=== PATIENT | female | born 1965 | race Caucasian/White ===

== ENCOUNTER → 2016-03-11 | Outpatient (CLI) | payer BC, OTHER ==
[~2016-03-11] MED LIST: ATOR-22 PO; AZITTAB PO; GLC/500 PO; LPRUNK; LSNUNK; METO25TA56 PO; SPIR25TA PO
[2016-03-11 17:36] LABS: ALT/SGPT 27 U/L (12-78); AST/SGOT 14 U/L (15-37); BLOOD UREA NITROGEN 19 mg/dl (7-18); BUN/CREATININE RATIO 25.1 (10-20); CALCIUM 9.5 mg/dl (8.5-10.1); CARBON DIOXIDE 27 mmol/L (21-32); CHLORIDE 104 mmol/L (98-107); CREATININE 0.77 mg/dl (0.60-1.20); GLUCOSE 128 mg/dl (70-99); POTASSIUM 4.3 mmol/L (3.5-5.1); SODIUM 140 mmol/L (136-145)
[2016-03-11 17:48] LABS: RATIO 9.6 mcg/mg (0-30.0)
[2016-03-12 06:11] LABS: ESTIMATED AVERAGE GLUCOSE 220 mg/dl; HA1C FLAG Normal (Normal)
== END | disposition home or self-care (01) ==
LOC: C.LABPVFM 16:12
DX: E11.9 Type 2 diabetes mellitus without complications (principal); E78.5 Hyperlipidemia, unspecified; I10 Essential (primary) hypertension

== ENCOUNTER → 2016-06-03 | Outpatient (CLI) | payer OTHER ==
[~2016-06-03] MED LIST changes: -ATOR-22 PO; -AZITTAB PO; -GLC/500 PO; -METO25TA56 PO; -SPIR25TA PO
[2016-06-03 18:29] LABS: ALT/SGPT 23 U/L (12-78); AST/SGOT 14 U/L (15-37); BLOOD UREA NITROGEN 16 mg/dl (7-18); BUN/CREATININE RATIO 19.5 (10-20); CALCIUM 9.5 mg/dl (8.5-10.1); CARBON DIOXIDE 26 mmol/L (21-32); CHLORIDE 106 mmol/L (98-107); CHOLESTEROL 150 mg/dl (0-200); CREATININE 0.83 mg/dl (0.60-1.20); GLUCOSE 186 mg/dl (70-99); POTASSIUM 4.3 mmol/L (3.5-5.1); SODIUM 140 mmol/L (136-145); TRIGLYCERIDES 210 mg/dl (0-150); VERY LOW DENSITY LIPOPROT CALC 42 mg/dl
[2016-06-03 18:32] LABS: CHOLESTEROL/HDL RATIO 4.7; HDL CHOLESTEROL 32 mg/dl; LDL CHOLESTEROL CALCULATED 76 mg/dl
== END | disposition home or self-care (01) ==
LOC: C.LABPVFM 10:23
DX: I10 Essential (primary) hypertension (principal); E78.5 Hyperlipidemia, unspecified; E11.9 Type 2 diabetes mellitus without complications

== ENCOUNTER → 2016-09-18 | Outpatient (CLI) | payer OTHER ==
[2016-09-18 14:58] LABS: ALT/SGPT 25 U/L (12-78); AST/SGOT 10 U/L (15-37); BLOOD UREA NITROGEN 11 mg/dl (7-18); BUN/CREATININE RATIO 15.4 (10-20); CALCIUM 9.5 mg/dl (8.5-10.1); CARBON DIOXIDE 24 mmol/L (21-32); CHLORIDE 108 mmol/L (98-107); CREATININE 0.71 mg/dl (0.60-1.20); POTASSIUM 4.3 mmol/L (3.5-5.1); SODIUM 141 mmol/L (136-145)
[2016-09-18 15:01] LABS: ESTIMATED AVERAGE GLUCOSE 169 mg/dl; HA1C FLAG Normal (Normal)
[2016-09-18 15:04] LABS: CHOLESTEROL 138 mg/dl (0-200); CHOLESTEROL/HDL RATIO 4.2; GLUCOSE 143 mg/dl (70-99); HDL CHOLESTEROL 33 mg/dl; LDL CHOLESTEROL CALCULATED 64 mg/dl; MAGNESIUM 2.2 mg/dl (1.8-2.4); TRIGLYCERIDES 203 mg/dl (0-150); VERY LOW DENSITY LIPOPROT CALC 41 mg/dl
== END | disposition home or self-care (01) ==
LOC: C.LAB 13:40
DX: E11.9 Type 2 diabetes mellitus without complications (principal); I10 Essential (primary) hypertension; E78.5 Hyperlipidemia, unspecified

== ENCOUNTER 2017-03-10 10:24 | Emergency (ER) | payer OTHER ==
[~2017-03-10] VITALS: Ht 157.5 cm; Wt 68.5 kg
[2017-03-10 10:40] VITALS: TEMP 36.8; Ht 157.5 cm; Wt 68.5 kg
[2017-03-10] MEDS ORDERED: ATOR-22 PO (11:41)
[2017-03-10] MEDS ORDERED: GLC/500 PO (11:41)
[2017-03-10] MEDS ORDERED: SPIR25TA PO (11:41)
[2017-03-10] MEDS ORDERED: METO25TA56 PO (11:41)
[2017-03-10 12:03] LABS: BASO % 0.6 %; BASO ABS # 0.05 K/uL (0-0.2); EOS % 2.2 %; EOS ABS # 0.17 K/uL (0-0.5); HEMATOCRIT 42.3 % (37-47); HEMOGLOBIN 15.2 g/dL (12.0-16.0); IG# 0.03 K/uL (0.00-0.02); LYMPH % 24.6 %; LYMPH ABS # 1.91 K/uL (1.2-3.4); MEAN CELL VOLUME 87.4 fL (80-100); MEAN CORPUSCULAR HEMOGLOBIN 31.4 pg (25-34); MEAN CORPUSCULAR HGB CONC 35.9 g/dl (32-36); MONO % 3.7 %; MONO ABS # 0.29 K/uL (0.11-0.59); NEUT % 68.5 %; NEUT ABS # 5.31 K/uL (1.4-6.5); PLATELET COUNT 245 K/uL (130-400); RED CELL DISTRIBUTION WIDTH CV 11.9 % (11.5-14.5); RED CELL DISTRIBUTION WIDTH SD 38.1 fL (36.4-46.3); WHITE BLOOD COUNT 7.76 K/uL (4.8-10.8)
--- NOTE | 2017-03-10 12:03 | DIAGNOSTIC IMAGING REPORT ---
CHEST ONE VIEW PORTABLE CLINICAL HISTORY: Altered mental status. Weakness. Right arm numbness. COMPARISON STUDY: August 2007 FINDINGS: The cardiac and mediastinal contours are normal. There is no evidence of focal pulmonary consolidation. There is no evidence of failure. No pleural effusions are visualized.[ There is a right shoulder peritendinous calcification. IMPRESSION: No active disease in the chest. Electronically signed by: Christopher Villegas M.D. 03/10/2017 12:01 PM Dictated Date/Time: 03/10/2017 12:01 PM
--- NOTE | 2017-03-10 12:15 | DIAGNOSTIC IMAGING REPORT ---
CT OF THE HEAD WITHOUT CONTRAST CLINICAL HISTORY: Altered mental status. Right arm numbness and tingling. COMPARISON STUDY: No previous studies for comparison. CT DOSE: 638.56 mGycm TECHNIQUE: Helical axial images of the head were obtained without IV contrast. Automated exposure control was utilized for the study. A dose lowering technique was utilized adhering to the principles of ALARA. FINDINGS: No acute intracranial hemorrhage, midline shift or mass effect is present. Brain volume is normal. Ventricular system is normal. Basilar cisterns are patent. There are no extra-axial collections. Perez-white differentiation is maintained. There are no findings to suggest acute dural sinus thrombosis or acute territorial infarct. There are are air-fluid levels with secretions within the right sphenoid and left maxillary sinuses. Mastoid air cells are clear. There are no significant calvarial abnormalities. Orbits are unremarkable. IMPRESSION: 1. No acute intracranial findings. 2. Right sphenoid and left maxillary sinusitis, possibly acute. Electronically signed by: Brad Muñoz M.D. 03/10/2017 12:13 PM Dictated Date/Time: 03/10/2017 12:11 PM
[2017-03-10 12:28] LABS: ALBUMIN 4.2 gm/dl (3.4-5.0); ALT/SGPT 35 U/L (12-78); AST/SGOT 13 U/L (15-37); BLOOD UREA NITROGEN 16 mg/dl (7-18); CARBON DIOXIDE 25 mmol/L (21-32); CREATININE 0.81 mg/dl (0.60-1.20); GLUCOSE 418 mg/dl (70-99); LIPASE 668 U/L (73-393); POTASSIUM 4.2 mmol/L (3.5-5.1); SODIUM 132 mmol/L (136-145)
[2017-03-10 12:30] LABS: ALKALINE PHOSPHATASE 83 U/L (45-117); CKMB < 0.5 ng/ml (0.5-3.6); TOTAL PROTEIN 7.7 gm/dl (6.4-8.2)
[2017-03-10] MEDS ORDERED: NovoLIN-R INSULIN PER UNIT CHARGE SC STA (13:41)
[2017-03-10] MEDS ORDERED: AZITHROMYCIN 250 MG TAB PO STA (13:41)
--- NOTE | 2017-03-10 13:49 | EMERGENCY ROOM VISIT NOTE ---
History Report prepared by Naye: Baldomero Arevalo Under the Supervision of: Dr. Mook Pat D.O. First contact with patient: 11:28 Chief Complaint: REFERRED BY DOCTOR Stated Complaint: DR SENT ME, TINGLING AND NUMB RIGHT ARM History of Present Illness The patient is a 52 year old female who presents to the Emergency Room with complaints of left arm numbness that began yesterday. She has a past medical history of hypertension and prediabetes. Yesterday, the patient woke up in the morning noticing that her left arm was tingling diffusely. It then eventually progressed into numbness in the entire arm. When she attempts to perform tasks with her left hand, she cannot feel what she is touching. She is right-handed. She denies any arm pain. She describes this tingling sensation as similar to when one's foot falls asleep. She contacted her PCP about this issue and was referred to the ER for a further work up. She denies any weakness. She intermittently gets leg cramps at night bilaterally. She is currently on Spironolactone. Source of History: patient Onset: yesterday morning Position: arm (left) Symptom Intensity: moderate Quality: numbness Timing: constant Associated Symptoms: No weakness Note: She is having tingling to the arm as well. She denies any left arm pain. Review of Systems See HPI for pertinent positives & negatives. A total of 10 systems reviewed and were otherwise negative. Past Medical & Surgical Medical Problems: (1) HTN (hypertension) (2) Pre-diabetes Family History Patient reports no known family medical history. Social History Smoking Status: Never Smoker Smokeless Tobacco Use: No Drug Use: none Occupation Status: employed Current/Historical Medications Scheduled Atorvastatin (Lipitor), 20 MG PO DAILY Metformin Hcl (Glucophage), 500 MG PO TID Metoprolol Tartrate (Lopressor) (Lopressor), 25 MG PO BID Spironolactone (Aldactone), 37.5 MG PO BID Allergies Coded Allergies: Aspirin (Verified Allergy, Unknown, ., 03/10/17) Cantaloupe (Verified Allergy, Unknown, ., 03/10/17) Ibuprofen (Verified Allergy, Unknown, ., 03/10/17) Physical Exam Vital Signs Date Time Temp Pulse Resp B/P (MAP) Pulse Ox O2 Delivery O2 Flow Rate FiO2 03/10/17 12:14 87 18 106/71 96 03/10/17 11:58 85 03/10/17 10:40 36.8 96 18 138/79 99 Room Air Physical Exam CONSTITUTIONAL/VITAL SIGNS: Reviewed / noted above. GENERAL: Non-toxic in appearance. INTEGUMENTARY: Warm, dry, and [place]. VITAL SIGNS: were reviewed as above. GENERAL:Non-toxic in appearance. SKIN: Warm dry and pink. HEAD: Normocephalic and atraumatic. OROPHARYNX: Is clear and moist NECK: Supple without lymphadenopathy or meningismus. LUNGS: clear. HEART: Regular rate and rhythm. ABDOMEN: Soft and nontender. EXTREMITIES: Warm and well perfused. NEUROLOGICALLY: Awake alert and oriented without focal deficit. Cranial nerves 2 -12 are intact. There is no pronator drift. Cerebellar testing is within normal limits. There is no nystagmus. There is no facial droop. Speech is clear. Vision is grossly normal. MUSCULOSKELETAL: Good muscle tone. No evidence of trauma. Medical Decision & Procedures ER Provider Diagnostic Interpretation: Radiology results as stated below per my review and radiologist interpretation: CT OF THE HEAD WITHOUT CONTRAST CLINICAL HISTORY: Altered mental status. Right arm numbness and tingling. COMPARISON STUDY: No previous studies for comparison. CT DOSE: 638.56 mGycm TECHNIQUE: Helical axial images of the head were obtained without IV contrast. Automated exposure control was utilized for the study. A dose lowering technique was utilized adhering to the principles of ALARA. FINDINGS: No acute intracranial hemorrhage, midline shift or mass effect is present. Brain volume is normal. Ventricular system is normal. Basilar cisterns are patent. There are no extra-axial collections. Perez-white differentiation is maintained. There are no findings to suggest acute dural sinus thrombosis or acute territorial infarct. There are are air-fluid levels with secretions within the right sphenoid and left maxillary sinuses. Mastoid air cells are clear. There are no significant calvarial abnormalities. Orbits are unremarkable. IMPRESSION: 1. No acute intracranial findings. 2. Right sphenoid and left maxillary sinusitis, possibly acute. Electronically signed by: Brad Muñoz M.D. 03/10/2017 12:13 PM Dictated Date/Time: 03/10/2017 12:11 PM CHEST ONE VIEW PORTABLE CLINICAL HISTORY: Altered mental status. Weakness. Right arm numbness. COMPARISON STUDY: August 2007 FINDINGS: The cardiac and mediastinal contours are normal. There is no evidence of focal pulmonary consolidation. There is no evidence of failure. No pleural effusions are visualized.[ There is a right shoulder peritendinous calcification. IMPRESSION: No active disease in the chest. Electronically signed by: Christopher Villegas M.D. 03/10/2017 12:01 PM Dictated Date/Time: 03/10/2017 12:01 PM Laboratory Results 03/10/17 11:50 Red Blood Count 4.84, Mean Corpuscular Volume 87.4, Mean Corpuscular Hemoglobin 31.4, Mean Corpuscular Hemoglobin Concent 35.9, Mean Platelet Volume 11.0, Neutrophils (%) (Auto) 68.5, Lymphocytes (%) (Auto) 24.6, Monocytes (%) (Auto) 3.7, Eosinophils (%) (Auto) 2.2, Basophils (%) (Auto) 0.6, Neutrophils # (Auto) 5.31, Lymphocytes # (Auto) 1.91, Monocytes # (Auto) 0.29, Eosinophils # (Auto) 0.17, Basophils # (Auto) 0.05 03/10/17 11:50 Test 03/10/17 11:50 White Blood Count 7.76 K/uL (4.8-10.8) Red Blood Count 4.84 M/uL (4.2-5.4) Hemoglobin 15.2 g/dL (12.0-16.0) Hematocrit 42.3 % (37-47) Mean Corpuscular Volume 87.4 fL (80-100) Mean Corpuscular Hemoglobin 31.4 pg (25-34) Mean Corpuscular Hemoglobin Concent 35.9 g/dl (32-36) Platelet Count 245 K/uL (130-400) Mean Platelet Volume 11.0 fL (7.4-10.4) Neutrophils (%) (Auto) 68.5 % Lymphocytes (%) (Auto) 24.6 % Monocytes (%) (Auto) 3.7 % Eosinophils (%) (Auto) 2.2 % Basophils (%) (Auto) 0.6 % Neutrophils # (Auto) 5.31 K/uL (1.4-6.5) Lymphocytes # (Auto) 1.91 K/uL (1.2-3.4) Monocytes # (Auto) 0.29 K/uL (0.11-0.59) Eosinophils # (Auto) 0.17 K/uL (0-0.5) Basophils # (Auto) 0.05 K/uL (0-0.2) RDW Standard Deviation 38.1 fL (36.4-46.3) RDW Coefficient of Variation 11.9 % (11.5-14.5) Immature Granulocyte % (Auto) 0.4 % Immature Granulocyte # (Auto) 0.03 K/uL (0.00-0.02) Anion Gap 7.0 mmol/L (3-11) Est Creatinine Clear Calc Drug Dose 73.7 ml/min Estimated GFR () 96.8 Estimated GFR (Non- 83.5 BUN/Creatinine Ratio 19.1 (10-20) Calcium Level 9.0 mg/dl (8.5-10.1) Magnesium Level 2.0 mg/dl (1.8-2.4) Total Bilirubin 0.6 mg/dl (0.2-1) Direct Bilirubin < 0.1 mg/dl (0-0.2) Aspartate Amino Transf (AST/SGOT) 13 U/L (15-37) Alanine Aminotransferase (ALT/SGPT) 35 U/L (12-78) Alkaline Phosphatase 83 U/L (45-117) Total Creatine Kinase 27 U/L (26-192) Creatine Kinase MB < 0.5 ng/ml (0.5-3.6) Creatine Kinase MB Ratio (0-3.0) Troponin I < 0.015 ng/ml (0-0.045) Total Protein 7.7 gm/dl (6.4-8.2) Albumin 4.2 gm/dl (3.4-5.0) Lipase 668 U/L (73-393) Beta-Hydroxybutyric Acid 5.39 mg/dL (0.2-2.81) Laboratory results as stated above per my review. ED Course 1128: Previous medical records were reviewed. The patient was evaluated in room A4. A complete history and physical examination was performed. 1341: Ordered Zithromax Tab 500 mg PO, Insulin Human Regular 6 units SC 1351: On reevaluation, the patient is resting. I discussed the results and findings with the patient. She verbalized agreement of the treatment plan. She was discharged home. Medical Decision Differentials include: Acute coronary syndrome, myocardial infarction, CVA, TIA , anemia, infection, pneumonia, UTI, pyelonephritis, poor nutrition, dehydration , electrolyte disturbance, and hypoglycemia. This is a 52-year-old female who presents to the ED with a chief complaint of left arm paresthesias. The patient reports that she has had this since yesterday morning. She thinks that she may have slept on her arm wrong. The patient states that the tingling sensation is diffusely around her entire arm and in the hand. It is not specifically following dermatome. She denies any other symptoms. No focal weakness. No speech difficulty. She did report also feeling thirsty and having some leg cramps. Her vital signs here are normal. Her physical exam was unremarkable. She has normal neurologic exam. She does have gross sensation although states that it feels a little different in the left arm compared to the right. EKG shows a normal sinus rhythm. CT scan of the brain did not show acute intracranial process. The patient did have a right sphenoid and left maxillary sinusitis on CT scan. Chest x-ray was negative for acute disease. Glucose is 418. Troponin was normal. The patient was told results the test. She was given 6 units of subcutaneous insulin. She was told to increase her metformin from 1.5 g per day to 2 g per day. The patient was told to follow-up with her PCP this week for glucose recheck. She is felt to be stable for discharge and outpatient follow-up. Medication Reconcilliation Current Medication List: was personally reviewed by me Blood Pressure Screening Patient's blood pressure: Elevated blood pressure Blood pressure disposition: Referred to PCP Impression Primary Impression: Paresthesia of left arm Additional Impressions: Sinusitis Hyperglycemia Scribe Attestation The scribe's documentation has been prepared under my direction and personally reviewed by me in its entirety. I confirm that the note above accurately reflects all work, treatment, procedures, and medical decision making performed by me. Departure Information Dispostion Home / Self-Care Referrals Flakito Wiley Jr,D.O. (PCP) Forms HOME CARE DOCUMENTATION FORM, IMPORTANT VISIT INFORMATION, WORK / SCHOOL INSTRUCTIONS Patient Instructions My [facility] Additional Instructions CT scans today revealed acute sinusitis. Zithromax as prescribed. Your blood sugar today was 418. You were given 6 units of subcutaneous insulin. Increase your metformin to 1000 mg twice a day. Follow-up with your doctor later this week for a blood sugar recheck. Return for any concerns or worsening. Problem Qualifiers
[2017-03-10] MEDS ORDERED: AZITTAB PO (14:19)
[2017-03-10 14:31] VITALS: BP 139/93; PULSE 97; O2SAT 97
== END 2017-03-10 14:32 | disposition home or self-care (01) ==
LOC: C.EDB 10:26 → C.EDA 14:32
DX: R20.2 Paresthesia of skin (principal); J32.9 Chronic sinusitis, unspecified; R73.9 Hyperglycemia, unspecified; I10 Essential (primary) hypertension; Z79.84 Long term (current) use of oral hypoglycemic drugs; Z79.899 Other long term (current) drug therapy; Z79.82 Long term (current) use of aspirin

== ENCOUNTER → 2017-03-11 | Outpatient (CLI) | payer OTHER ==
[~2017-03-11] MED LIST changes: +ATOR-22 PO; +AZITTAB PO; +GLC/500 PO; -LPRUNK; -LSNUNK; +METO25TA56 PO; +SPIR25TA PO
[2017-03-11 16:12] LABS: BLOOD UREA NITROGEN 16 mg/dl (7-18); CALCIUM 9.5 mg/dl (8.5-10.1); CARBON DIOXIDE 26 mmol/L (21-32); CREATININE 0.92 mg/dl (0.60-1.20); GLUCOSE 446 mg/dl (70-99); POTASSIUM 4.3 mmol/L (3.5-5.1); SODIUM 133 mmol/L (136-145)
[2017-03-11 16:55] LABS: HEMOGLOBIN A1C 14.1 % (4.5-5.6)
== END | disposition home or self-care (01) ==
LOC: C.LAB 12:49
DX: E11.9 Type 2 diabetes mellitus without complications (principal)

== ENCOUNTER → 2017-05-01 | Outpatient (CLI) | payer OTHER ==
[~2017-05-01] MED LIST changes: -AZITTAB PO
--- NOTE | 2017-05-01 12:36 | DIAGNOSTIC IMAGING REPORT ---
ULTRASOUND OF THE THYROID GLAND CLINICAL HISTORY: Thyroid nodule. COMPARISON STUDY: No priors. TECHNIQUE: Real-time, grayscale, and color flow sonography of the thyroid gland is performed utilizing a high-frequency linear transducer. Images are reviewed in the transverse and longitudinal planes. FINDINGS: Right lobe: The right lobe of the thyroid gland is normal in size and homogeneous in echotexture, measuring 4.5 x 1.5 x 1.8 cm. There are 2 colloid cyst identified in the right lobe measuring up to 4 mm. Left lobe: The left lobe of the thyroid gland is diminutive and homogeneous in echotexture, measuring 2.9 x 0.5 x 0.8 cm. No left-sided nodule is identified. Isthmus: The thyroid isthmus is normal in appearance and measures 0.3 cm in AP diameter. IMPRESSION: 1. The left thyroid lobe is diminutive. 2. No concerning thyroid lesion is identified. 3. There are 2 subcentimeter colloid cysts incidentally noted in the right lobe. Electronically signed by: Finn Graham M.D. 05/01/2017 12:35 PM Dictated Date/Time: 05/01/2017 12:33 PM
== END | disposition home or self-care (01) ==
LOC: C.ULTR 12:04
PROVIDERS: ATTEND Internal Medicine Endocrinology, Diabetes & Metabolism
DX: E04.1 Nontoxic single thyroid nodule (principal)